=== PATIENT | female | born 1965 | race Caucasian/White ===

== ENCOUNTER 2018-08-07 06:07 | Inpatient (IN) | payer OTHER, SELFPAY ==
[2018-07-21 09:03] VITALS: BMI 39.9
[2018-08-07] VITALS (14 sets, daily range): BP systolic 104–130; BP diastolic 60–79; PULSE 45–68; RESP 10–20; TEMP 35.6–36.9; O2SAT 95–100; BMI 40.7
--- NOTE | 2018-08-07 | DI.RAD.S_ITS ---
PROCEDURE: XR HIP W PEL IF DONE LT 2V INDICATIONS: POST OPERATIVE TOTAL LEFT HIP TECHNIQUE: 2 views of the hip were acquired. COMPARISON: [facility], CR, XR HIP W PEL IF DONE LT 2V, 08/07/2018, 9:25. FINDINGS: Bones: Surgical changes are identified related to a left hip arthroplasty. The prosthetic components appear to be intact and appropriately seated. No periprosthetic fractures are evident. Post surgical changes are also present involving the right hip related to a right total hip arthroplasty. Soft tissues: No suspicious soft tissue calcifications or masses. Expected postoperative changes within the overlying soft tissues are present. Surgical drainage catheter is evident. Surgical skin aravind are noted. No unexpected radiopaque foreign bodies are appreciated. IMPRESSION: Expected post surgical changes related to a left hip arthroplasty. Dictated by: Kevin Prieto M.D. on 08/07/2018 at 11:38 Approved by: Kevin Prieto M.D. on 08/07/2018 at 11:39
--- NOTE | 2018-08-07 06:00 | DI.RAD.S_ITS ---
PROCEDURE: XR HIP W PEL IF DONE LT 2V INDICATIONS: prosthesis placement TECHNIQUE: AP pelvis and lateral view of the left hip acquired. COMPARISON: [facility], [place], XR PELVIS WITH BILATERAL LATERAL HIPS, 07/23/2018, 14:15. FINDINGS: Bones: Patient is status post left hip arthroplasty, with hardware components in expected positions. The visualized bony structures appear intact. Soft tissues: Overlying postoperative changes are noted. No suspicious soft tissue densities. IMPRESSION: Expected procedural change for left hip arthroplasty. Dictated by: Clarissa Madison MD, PhD on 08/07/2018 at 9:49 Approved by: Clarissa Madison MD, PhD on 08/07/2018 at 9:52
[2018-08-07] MEDS: LACTATED RINGERS 1,000 ML 42 ML IV ×2 (07:00→09:49)
[2018-08-07] MEDS: VANCOMYCIN 1,000 MG/200 ML FROZ.PIGGY 200 MG IV (07:01)
[2018-08-07] MEDS: ACETAMINOPHEN 325 MG TABLET 975 MG PO ×3 (07:19→21:04)
[2018-08-07] MEDS: PREGABALIN 75 MG CAPSULE PO (07:19)
--- NOTE | 2018-08-07 07:56 | PM.PREOP ---
Pre-operative Note Interval Note Pre-op Check: Yes History & Physical Reviewed by Physician and Yes Exam Performed Changes: No
--- NOTE | 2018-08-07 07:56 | PM.OP.1 ---
Operative Date/Time/Diagnoses Date of procedure: 08/07/18 Time of procedure: 07:56 Pre-op diagnosis: left hip severe AVN with collapse, hip OA Post-op diagnosis: same Procedure & Clinicians Procedure: Left total hip arthroplasty Same procedure as scheduled: Yes Indications: The patient has had progressively worsening left hip pain with radiographic changes consistent with arthritis. Non-operative management has failed and the patient has requested total hip replacement. The risks, benefits and alternatives to surgery were discussed with the patient prior to proceeding. Risks discussed included, but were not limited to, failure to relieve pain, leg length discrepancy, dislocation, stiffness, infection, nerve damage, deep venous thrombosis, pulmonary embolism, stroke, coma, heart attack, permanent paralysis and , as well as the potential need for eventual revision of the prosthetic. Surgeon: Yady Boss Farm [employer] Adviser: Mariam Cabrera Anesthesia Type: General and Spinal Operative Notes Findings: severe left hip avascular necrosis, adequate stability and bone quality Closure Type: primary Specimen(s): none sent Implants & Drains: Boss [employer] Nephew R3 52 cup neutral liner, +4 femoral head by 36 size 9 standard offset anthology single 20 mm screw Applied: drain(s) Estimated Blood Loss (mL): 250 Blood products transfused: none Procedure in detail: The patient was seen in the pre-operative area, where the patient identified the left hip as the operative site and this was marked with my initials. The patient received pre-operative antibiotics and was taken to the operating room and placed on the operative table in the right lateral decubitus position after satisfactory anesthesia. A log truck driver out was performed. The left leg was prepared from the ankle to the iliac crest with ChloroPrep in the usual fashion and draped through sterile drapes. The hip was approached through an approximately 24 cm incision centered over the greater trochanter and curving gently posteriorly as it went proximally. This was carried sharply to the fascia adriel, which was divided and retracted with a self retaining retractor. The trochanteric bursa was excised with care being taken to avoid the sciatic nerve, which was identified and protected throughout the case. The short external rotators were incised and the capsulomuscular flap was raised and tagged for later repair. The hip was dislocated, and a femoral neck osteotomy performed approximately 15 mm above the lesser trochanter. Retractors were placed around the femur. The canal was opened with a box cutting osteotome, followed by a T handled reamer and a lateralizing reamer. The chili pepper broach was then used, followed by sequential broaching until there was good stability of the broach in the femur. Retractors were placed to expose the acetabulum. The labrum and central soft tissues were removed. Reaming was performed initially going up in 2 mm increments, then 1 mm increments until good bite was obtained with an odd sized reamer. The cup 1 mm larger than the last reamer was then inserted using the appropriate anteversion guides. her acetabulum was somewhat shallow and I felt that I should supplement our fixation with a screw. A drill bit was used and it was measured and a screw was placed in the posterolateral quadrant that was 20 mm. A trial neutral liner was placed. The broach was placed in the canal. A trial head and neck were then placed and the hip relocated and checked for leg length and stability. An intraoperative film confirmed the component position and no evidence of fracture. The digital x-rays were not available and 2 films were taken which were of suboptimal quality but did provide some intraoperative information. The patient was stable in the position of sleep, of squatting, and could be put through a range of motion with 45 degrees internal rotation without dislocation. At 90 degrees flexion, internal rotation to 60 was possible before dislocation. This was felt to be satisfactory and the appropriate components were opened, and the trials were removed. The acetabular liner was impacted into position. The final stem was then impacted into the prepared femoral canal. A brief Betadine soak was performed while trialing with head options. The hip was meticulously irrigated with normal saline. Finally the femoral head was impacted onto the stem. The acetabulum was cleared of all material and the hip relocated one final time. The capsulomuscular flap was then repaired to the greater trochanter though an awl hole using the tag sutures. The short external rotators were repaired with a nonabsorbable suture. A deep drain was placed and brought out anteriorly. The fascia adriel was closed with nonabsorbable suture. The subcutaneous layer was closed with barbed sutures and SteriStrips. An Aquacel Ag dressing was applied and the patient was taken to recovery having tolerated the procedure well. Complications: none Condition: stable Disposition: Acute Care Plan for aftercare: The patient will be maintained on a standard total hip replacement protocol with weight bearing as tolerated and posterior hip precautions. The patient will receive Coumadin and sequential compression devices for DVT prophylaxis. The patient will be discharged home when safe for the home environment.
[2018-08-07] MEDS: CEFAZOLIN 2 GM/100 ML FROZ.PIGGY IV (08:00)
--- NOTE | 2018-08-07 08:29 | SUR.OPER ---
Lateral on padded OR bed. Gel axillary roll. Arms secured on padded armboard with pillow supporting top arm. Padded hip positioner braces x4 - anterior and posterior chest and pelvis. Additional gel pad used anterior pelvis. Gel pad under bottom leg from knee to foot and secured with tape over sheet.
[2018-08-07] MEDS: BUPIVACAINE LIPOSOME 266 MG/20 ML VIAL INJ (08:40)
[2018-08-07] MEDS: BUPIVACAINE 0.5% W/ EPI (PF) VIAL 60 ML INJ (08:40)
[2018-08-07] MEDS: POVIDONE-IODINE 15 ML, SODIUM CHLORIDE 0.9% 250 ML TOP (08:41)
[2018-08-07] MEDS: SODIUM CHLORIDE IRRIG SOLUTION 250 ML, EPINEPHrine 1 MG IRR (08:41)
[2018-08-07] MEDS: LACTATED RINGERS 1,000 ML 125 ML IV ×2 (12:13→21:04)
--- NOTE | 2018-08-07 12:43 | PC.ADMIT ---
Addendum entered by Soy Whitfield R.N. 08/07/18 13:32: patient had 230cc's from HV within 2 hrs. Gretchen Garcia notified. order to clamp x 2hrs. just now clamped at 1330. Original Note: [address] Admission Note: PATIENT DROWSY, IMMEDIATELY RESPONSIVE TO VOICE. MAKES NEEDS KNOWN. VSS. SAT 96-98% ON RA. SELVIN 45-60 HRR W/ MURMUR. STATES THIS IS HER BASELINE AND HAS BEEN WORKED UP BY ENTRY LEVEL RECEPTIONIST IN THE PAST. RATES PAIN 3-4/10. INCISIONAL BURNING RATHER THAN JOINT PAIN. FAMILY AT BEDSIDE. MALCOM DRSG CDI. HV PATENT, SANG DRAINAGE. The patient,Megan Goldberg,52 y/o, was given written information regarding hospital policies, unit procedures and contact persons. Patient's smoking status: Never smoker. Vital Signs - 8 hr 08/07/18 07:04 08/07/18 10:42 08/07/18 10:46 Temperature 97.5 F L Pulse Rate 68 68 68 Respiratory Rate 15 12 10 L Blood Pressure 127/74 114/68 104/64 Pulse Oximetry 97 95 96 08/07/18 10:51 08/07/18 10:56 08/07/18 11:01 Temperature 96.5 F L Pulse Rate 64 62 62 Respiratory Rate 10 L 10 L 12 Blood Pressure 104/62 108/67 123/70 Pulse Oximetry 97 98 99 08/07/18 11:06 08/07/18 11:25 08/07/18 11:55 Temperature 96.0 F L 96.8 F L Pulse Rate 60 56 L 57 L Respiratory Rate 10 L 12 12 Blood Pressure 127/72 120/65 108/72 Pulse Oximetry 96 100 97 08/07/18 12:25 Temperature 96.4 F L Pulse Rate 55 L Respiratory Rate 16 Blood Pressure 110/60 Pulse Oximetry 100
[2018-08-07] MEDS: TRAMADOL 50 MG TABLET PO ×3 (13:18→21:04)
[2018-08-07 14:25] LABS: INR 1.1 (0.9-1.3); Prothrombin Time 12.6 SECONDS (10.1-12.7)
--- NOTE | 2018-08-07 15:22 | PT.IIE ---
Current Diagnoses Unilateral primary osteoarthritis, left hip (08/07/18) Surgery Performed Operation Date: 08/07/18 07:45 Actual Procedures p Total Hip Arthroplasty(Left) - Yady Boss MD Surgical History (Last Updated 07/21/18 @ 09:42 by Tiffanie Clemens RN) History of total right hip arthroplasty (Acute 10/13/17) Hx of cholecystectomy (Acute ~1988) Medical History (Last Updated 07/21/18 @ 09:43 by Tiffanie Clemens RN) Basal cell carcinoma (BCC) (Acute ~2017) Bradycardia (Acute) Factor V Leiden (Acute) Fibromyalgia (Acute) Hypothermia associated with surgery (Acute) Pneumonia (Acute) Postoperative hypotension (Acute) Rheumatoid arthritis (Acute) Sleep apnea (Acute) Physical Therapy Inpatient Evaluation/Re-Eval M1 PT/OT-IP Prior Functional Status Start: 08/07/18 14:54 Freq: NEEDED Status: Active Protocol: Document 08/07/18 14:00 (Rec: 08/07/18 15:21 [email or web address]) Medical Review Prior Functional Status Medical History Reviewed Yes Communication No deficits noted Mobility and Gait Pt is an independent ambulator at home and community. Pt uses FWW at home and 4 WW for community mobility. Activities of Daily Living and IADL's independent for ADLs with FWW/ 4WW. Mod independent with IADLs. Pt's is able to help if needed such as grocery shopping. Social History Household Members spouse children Living Arrangements House Number of Floors (Floors) One Floor Number of Stairs To Enter/Railing? 1 M[place] with railing on the left side Home Environment High Toilet Walk in Shower Home Equipment Front Wheel Walker Four Wheel Walker Raised Toilet Seat Without Armrests Employment Status [employer] Employed Additional Social History Comment Pt lives at a 1 story home 1 [address] with her . Pt does require assistance for ADLs and most ADLs. Pt's helped her both ADLs and IADLs early this year after she received her R THR. M2 PT-IP Current Condition Start: 08/07/18 14:54 Freq: NEEDED Status: Active Protocol: Document 08/07/18 14:00 HH (Rec: 08/07/18 15:21 [email or web address]) Physical Therapy Current Condition Current Condition Evaluation Date 08/07/18 Treatment Diagnosis L THR, difficulty in walking, generalized muscle weakness Onset Date 08/07/18 Precautions Posterior Hip Precautions No Hip Flexion > 90 degrees No Hip Internal Rotation No Hip Adduction Weight Bearing Status Weight Bearing Status Weight Bear as Tolerated M3 PT-IP Subjective Start: 08/07/18 14:54 Freq: NEEDED Status: Active Protocol: Document 08/07/18 14:00 (Rec: 08/07/18 15:21 [email or web address]) Subjective Physical Therapy Visit Type Type Initial Evaluation Visit Start Time 14:00 Visit Stop Time 14:45 Total Visit Minutes 45 Notes Pt agreeable to mobilize with PT. Pt reports L hip pain 4/10 and requests to reposition her in bed due to discomfort at her R buttock. Number of SALES AGENT CASUALTY INSURANCE Visits 0 Physical Therapy Visit Comments Patient Comments Pt states I want to reposition myself and get OOB. I dont have much pain now and my sensation are the same for both legs. Patient Goals To be able to go home To be able to amb without AD Therapy Pain Assessment Pain When Pain Assessed At Rest Pain Present Pain Present Pain Reported Location Left Hip Intensity 4 Scale Used Numeric (1 - 10) Description Acute Pain Management Techniques Apply Cold Re-positioning Timing of Activity with Medications M4 PT-IP Mobility and Gait Start: 08/07/18 14:54 Freq: NEEDED Status: Active Protocol: Document 08/07/18 14:00 (Rec: 08/07/18 15:21 [email or web address]) PT-Bed Mobility Assessment Supine to Sit Supine to Sit Minimal Assistance 1 Person Assistance Head of Bed Elevated Sit to Supine Sit to Supine Minimal Assistance 1 Person Assistance Head of Bed Elevated Scooting Scooting to Edge of Bed Minimal Assistance PT-Transfer Assessment Sit to and From Stand Sit to and from Stand Contact Guard Assistance Use of Upper Extremities Equipment Transfer Assistive Device Gait Belt Front Wheeled Walker Transfers Transfer Destination Bed Chair Bedside Commode Transfer Technique Stand Step Pivot Transfer Ability Level of Assist Contact Guard Assistance 1 Person Assistance Comments Mobility Comments sitting BP 130/69 HR 55 98% post transfer BP 130/86 HR 72 96% Pt performs lateral scooting in supine with min A to unweight her L LE. She then performs supine to sit with bed in semi-sitting position with CGA. Pt is able to scoot forward to EOB with min A on L LE followed by sit to stand with FWW CGA. Pt transfer with stand step pivot x 2 to bedside commode and reclining chair with FWW CGA. Pt denies increase in pain and is aware of her precautions. Pt does not show acute distress and LOB. She is also able to FWB at her L LE. Gait Assessment Gait Gait Assistance Required: Contact Guard Assist Distance (Feet) 15 Assistive Devices Assistive Device Gait Belt Front Wheeled Walker Gait Deviations General Gait Pattern Antalgic Decreased Stride Length Decreased Feet Clearance Factors Limiting Gait Function Factors Limiting Gait Function Decreased Activity Tolerance Decreased Strength Limited Range of Motion Pain Comments Gait Comments Pt ambs from EOB to bedside commode and to reclining chair for 15 feet in total with FWW CGA. She denies increase in pain and able to FWB on her L LE during amb. Pt does present mild antalgic gait during stance phase of L LE but she states I feel like im walking better without much pain. Pt does c/o slight fatigue after back to chair possibly due to anesthesia from sx. Pt does not show any signs of LOB during amb and is able to recall posterior hip precautions. Stair Climbing Assessment Comments Stair Climbing Comments did not attempt due to fatigue . PT-Balance Assessment Sitting Balance and Reactions Static Sitting Balance Ability Normal Dynamic Sitting Balance Ability Normal Standing Balance and Reactions Static Standing Balance Ability Normal Dynamic Standing Balance Ability Good M5 PT-IP Objective Assessments Start: 08/07/18 14:54 Freq: NEEDED Status: Active Protocol: Document 08/07/18 14:00 (Rec: 08/07/18 15:21 [email or web address]) Orientation Orientation/Cognition Level of Alertness Alert Orientation Name Age Birthday Month Date Year Day of Week Place Situation Safety Awareness Understands Safety Issues Memory Description No Deficits Noted Gross Range of Motion Upper Extremity ROM Assessment Within Functional Limits Lower Extremity ROM Assessment Within Functional Limits Strength Upper Extremity Strength Assessment Within Functional Limits Lower Extremity Strength Assessment Right Impaired Coordination Assessment Gross Coordination Gross Coordination WNL Sensation Assessment Sensation Gross Sensation WNL M6 PT-IP Treatment Start: 08/07/18 14:54 Freq: NEEDED Status: Active Protocol: Document 08/07/18 14:00 (Rec: 08/07/18 15:21 [email or web address]) Physical Therapy Treatment Exercises Exercises Ankle Pumps Gluteal Sets Quad Sets Heel Slides Education Education Provided Precautions Weight Bearing Status Post-Op Packet Safety Other Treatments Other Treatment Performed supine leg press against PT M7 PT-IP Assessment and Plan Start: 08/07/18 14:54 Freq: NEEDED Status: Active Protocol: Document 08/07/18 14:00 (Rec: 08/07/18 15:21 [email or web address]) PT Summary Assessment and Plan Potential Rehabilitation Potential Excellent Status of Condition at Evaluation Stable Summary Impairments Pain ROM Strength Gait Activity Tolerance Assessment Summary Pt was seen in her room today with her supportive family. Pt had R posterior THR early this year who is able to recall all her precautions. Pt is very motivated and pleasant who is willing to amb upon assessment. Pt denies increase in pain during OOB and gait training today. Pt currently requires CGA for OOB and amb, min A for bed mobility to unweight her L LE. Pt also presents good safety awareness and no signs of LOB/ acute distress. Cont PT to increase her overall functional mobility as tolerated prior to d/c. Recommend d/c to home with home health PT / outpatient PT . Goals Bed Mobility Goal Standby Assistance Gait Goal Standby Assistance Gait Distance 100 Other Goals negotiate 1 step with CGA Days to Meet Goals 2 Frequency of Treatment Frequency Of Treatment Twice a Day Treatment Plan Physical Therapy Treatment Plan Bed Mobility Training Transfer Training Gait Training Therapeutic Exercise Balance Retraining Post Op Education Hot or Cold Pack Neuromuscular Re-ed Other Recommendations and Next Treatment gait training as hortencia, bed mob Focus supine to sit, scooting EOB, step training as hortencia Recommendations To Nursing Amount of Assist Needed 2 Person Assist Discharge Recommendations PT Discharge Recommendations Home Home Health Outpatient PT
[2018-08-07] MEDS: CEFAZOLIN VIAL 3 GM in SODIUM CHLORIDE 0.9% 100 ML 200 ML IV (16:04)
[2018-08-07] MEDS: IBUPROFEN 600 MG TABLET PO (16:57)
[2018-08-07] MEDS: ASPIRIN EC 81 MG TABLET PO (21:04)
[2018-08-07] MEDS: DOCUSATE 100 MG CAPSULE PO (21:04)
[2018-08-08] MEDS: CEFAZOLIN VIAL 3 GM in SODIUM CHLORIDE 0.9% 100 ML 200 ML IV (00:01)
[2018-08-08 01:16] VITALS: BP 109/51; PULSE 55; RESP 17; TEMP 36.5; O2SAT 98
[2018-08-08] MEDS: IBUPROFEN 600 MG TABLET PO (02:20)
[2018-08-08] MEDS: TRAMADOL 50 MG TABLET PO (02:20)
--- NOTE | 2018-08-08 02:57 | PC.NURSE ---
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 Medicated with prn pain meds for 3-4/10 pain to left hip. H/V site leaking, dressing removed and reinforced, H/V collection does not hold suction well but continues to drain sero sang drainage. Kristin dressing has two small of red drainage. Bed alarm on.
[2018-08-08 06:24] VITALS: BP 100/58; PULSE 49; RESP 16; TEMP 36.4; O2SAT 98
[2018-08-08 06:34] LABS: Hemoglobin 10.1 g/dL (12.0-16.0)
--- NOTE | 2018-08-08 08:44 | P.DS_ITS ---
History of Present Illness Date Patient Seen: 08/08/18 Time Patient Seen: 08:41 Chief complaint: [id number] LEFT TOTAL HIP ARTHROPLASTY Narrative: Patient postop day 1 status post left total hip arthroplasty. Patient's pain is mild. She has been walking in room. She is able to urinate on her own. She has pain meds at home. She is back on her Coumadin. She will continue aspirin for couple days and then be seen for PT INR. No fever chills. Otherwise without complaints. Discharge Providers Date of admission: 08/07/18 06:07 Primary care physician: LLOYD Schwarz Consults: 07/21/18 09:33 Consult to Respiratory Therapy Evaluate & Treat Comment: Does not use CPAP, will bring dos Physician Instructions: Evaluate and treat 08/07/18 06:00 Consult to Anesthesiology Routine Comment: Consulting Provider: Anesthesiologist Reason for consultation: Regional block for post operative pain control 08/07/18 07:18 Consult to Respiratory Therapy Evaluate & Treat Comment: Physician Instructions: Evaluate and treat 08/07/18 11:29 Consult to Discharge Planning Routine Comment: Consult to Physical Therapy Evaluate & Treat Comment: Physician Instructions: post op SAMANTHA protocol Consult to Respiratory Therapy Evaluate & Treat Comment: Physician Instructions: Evaluate and treat, oob today Discharge provider: Bola Kraft PA-C Discharge Date: 08/08/18 Summary Discharge Diagnosis: Status post left total hip arthroplasty Hospital Course: Patient failed conservative treatment per op note. Patient admitted to the hospital for left total knee arthroplasty. Patient consented to the same. Patient taken to the operating room underwent left total hip arthroplasty. Patient back in her room recovering well and is in stable condition. Patient has been up ambulating in her room. She denies fever chills. No nausea vomiting. She is status post right total hip arthroplasty. She does have pain medicine at home and has not restarted her Coumadin. Patient is aware that she needs to be seen and [facility] for PT INR check. Otherwise without complaints. She does feel ready to go home this morning. She has her and kids at home to assist her. Status at Discharge Functional status at discharge: uses cane/walker Overall status at discharge: patient is progressing back to baseline Time Spent with Patient Less than 30 minutes Exam Vital Signs (past 8 hours): - 08/08/18 01:16 08/08/18 06:24 Temperature 97.7 F 97.6 F Pulse Rate 55 L 49 L Respiratory Rate 17 16 Blood Pressure 109/51 L 100/58 L Pulse Oximetry 98 98 Oxygen Delivery Method Room Air Narrative Exam Narrative: 52-year-old female resting comfortably in bed in no apparent distress. Hemovac in place. Kristin dressing on and functioning. Dressing is clean , dry and intact. Sensation grossly intact to light touch distal left lower extremity. Motor functions intact distal left lower extremity. Objective Labs Result Diagrams: 08/08/18 06:24 Labs: Laboratory Results - last 24 hr 08/07/18 08/08/18 14:02 06:24 Hgb 10.1 L Hct 30.0 L PT 12.6 INR 1.1 Discharge Plan Discharge Plan Patient Disposition: Home Discharge comment: DC home today after PT Discharge Med Rec/Prescriptions Prescriptions: New acetaminophen 325 mg Tablet 975 mg PO TID Qty: 90 RF: 0 Continue warfarin 6 mg Tablet 6 mg PO DAILY RF: 0 methotrexate sodium 2.5 mg Tablet 25 mg PO QWEEK RF: 0 warfarin 2.5 mg Tablet 2.5 mg PO SEEINSTR RF: 0 Follow up/Referrals: Jessie Thakkar ARNP [Primary Care Provider] - 1 Week Yady Boss MD [Physician] - Provider Discharge Instructions Diet: Diet as Tolerated Activity: Weightbearing as tolerated, posterior hip precautions Cold/Heat Therapy: Apply ice to the affected area as needed Skin/Wound/Dressing Care Report to your healthcare provider any signs of infection, such as:: chills, fever, increased pain, unusual drainage and unusual redness Dressing: Kristin dressing instructions reviewed with patient Discharge Data Primary Care Provider: Jessie Thakkar Attending Provider: Yady Boss Admit Date/Time: 08/07/18 06:07 Quality VTE Deep Vein Thrombosis/Pulmonary Embolism Present on Admission: No
[2018-08-08 09:00] VITALS: BP 109/55; PULSE 56; RESP 16; TEMP 36.4; O2SAT 98
[2018-08-08] MEDS: ACETAMINOPHEN 325 MG TABLET 975 MG PO (09:13)
[2018-08-08] MEDS: ASPIRIN EC 81 MG TABLET PO (09:13)
[2018-08-08] MEDS: DOCUSATE 100 MG CAPSULE PO (09:13)
--- NOTE | 2018-08-08 09:30 | PT.IPTN ---
Current Diagnoses Unilateral primary osteoarthritis, left hip (08/07/18) Surgery Performed Operation Date: 08/07/18 07:45 Actual Procedures p Total Hip Arthroplasty(Left) - Yady Boss MD Physical Therapy Treatment Note M2 PT-IP Current Condition Start: 08/07/18 14:54 Freq: NEEDED Status: Discharge Protocol: Document 08/07/18 14:00 HH (Rec: 08/07/18 15:21 HH [id number]) Physical Therapy Current Condition Current Condition Evaluation Date 08/07/18 Treatment Diagnosis L THR, difficulty in walking, generalized muscle weakness Onset Date 08/07/18 Precautions Posterior Hip Precautions No Hip Flexion > 90 degrees No Hip Internal Rotation No Hip Adduction Weight Bearing Status Weight Bearing Status Weight Bear as Tolerated M3 PT-IP Subjective Start: 08/07/18 14:54 Freq: NEEDED Status: Discharge Protocol: Document 08/08/18 09:30 GGD (Rec: 08/08/18 12:51 GGD [email or web address]) Subjective Physical Therapy Visit Type Type Treatment Note Visit Start Time 09:05 Visit Stop Time 09:30 Total Visit Minutes 25 Number of ULTRASONIC SOLDERER Visits 1 Physical Therapy Visit Comments Patient Comments Pt states she feels ready to go home. Therapy Pain Assessment Pain When Pain Assessed During Mobility Pain Present Pain Present Pain Reported M4 PT-IP Mobility and Gait Start: 08/07/18 14:54 Freq: NEEDED Status: Discharge Protocol: Document 08/08/18 09:30 GGD (Rec: 08/08/18 12:51 GGD [email or web address]) PT-Transfer Assessment Sit to and From Stand Sit to and from Stand Standby Assistance Use of Upper Extremities Equipment Transfer Assistive Device Gait Belt Front Wheeled Walker Orthotic/Prosthetic Devices or Brace: Yes Transfers Transfer Destination Chair Transfer Ability Level of Assist Contact Guard Assistance 1 Person Assistance Gait Assessment Gait Gait Assistance Required: Contact Guard Assist Distance (Feet) 220 Able to Maintain Weight Bearing Status Yes During Gait Assistive Devices Assistive Device Gait Belt Front Wheeled Walker Gait Deviations General Gait Pattern Antalgic Decreased Stride Length Decreased Feet Clearance Factors Limiting Gait Function Factors Limiting Gait Function Decreased Activity Tolerance Decreased Strength Limited Range of Motion Pain Stair Climbing Assessment Evaluation Level of Assist On Stairs Contact Guard Assistance Devices Stair Climbing Assistive Devices Front Wheel Walker Technique/Endurance Stair Climbing Direction Ascend and Descend Stair Climbing Technique Step to Step Number of Steps Climbed 1 Query Text: Stair Climbing Set # Repetitions (reps) 1 M5 PT-IP Objective Assessments Start: 08/07/18 14:54 Freq: NEEDED Status: Discharge Protocol: Document 08/07/18 14:00 HH (Rec: 08/07/18 15:21 HH [email or web address]) Orientation Orientation/Cognition Level of Alertness Alert Orientation Name Age Birthday Month Date Year Day of Week Place Situation Safety Awareness Understands Safety Issues Memory Description No Deficits Noted Gross Range of Motion Upper Extremity ROM Assessment Within Functional Limits Lower Extremity ROM Assessment Within Functional Limits Strength Upper Extremity Strength Assessment Within Functional Limits Lower Extremity Strength Assessment Right Impaired Coordination Assessment Gross Coordination Gross Coordination WNL Sensation Assessment Sensation Gross Sensation WNL M6 PT-IP Treatment Start: 08/07/18 14:54 Freq: NEEDED Status: Discharge Protocol: Document 08/08/18 09:30 GGD (Rec: 08/08/18 12:51 GGD [email or web address]) Physical Therapy Treatment Exercises Exercises Ankle Pumps Gluteal Sets Quad Sets Seated Knee Flexion/Extension Education Education Provided Precautions M7 PT-IP Assessment and Plan Start: 08/07/18 14:54 Freq: NEEDED Status: Discharge Protocol: Document 08/08/18 09:30 GGD (Rec: 08/08/18 12:51 GGD [email or web address]) PT Summary Assessment and Plan Summary Assessment Summary Pt improving with mobility. She was safe and stable with gait and stair mobility. She able to recall her hip precautions. She has good safety awareness. Pt safe to D /C home when medically stable. Frequency of Treatment Frequency Of Treatment Twice a Day Treatment Plan Other Recommendations and Next Treatment gait training as hortencia, bed mob Focus supine to sit, scooting EOB, step training as hortencia Recommendations To Nursing Amount of Assist Needed 1 Person Assist Discharge Recommendations PT Discharge Recommendations Home with Assistance Outpatient PT
--- NOTE | 2018-08-08 11:55 | CM.DANOTE ---
Patient is a 52 year old female who was admitted on 08/07/18 for Left Total Hip Arthro. Pt has [employer] for insurance and her PCP is Dr. Thakkar. EMR was reviewed. Per Ortho MD, pt tolerated procedure well and likely stable for d/c home today after further PT. Per PT, pt ambulating well and not currently needing pain medication and recommending safe d/c home with outpt PT. SW met bedside with pt while working with PT and SW explained role and pt confirms that she lives at home with her and children and is independent at baseline with ADL's and has both FWW and 4WW at home for use and has a hx of Rip Total Hip earlier this year and discharged home but ended up needing Home Infusion for Abx for infection through [facility] in November 2017. Pt's DPOA is her Aries. Pt does not anticipate any SW needs and plan is to d/c home with family later today and no identified barriers to discharge. Plan: SW to follow for likely pt d/c home via family POV later today after further PT. ANDERS Jessica Discharge Planning/Care Management CM Discharge Assessment Start: 08/08/18 11:50 Freq: Status: Active Protocol: Document 08/08/18 11:50 BF (Rec: 08/08/18 11:55 BF [id number]) Discharge Planning Assessment Assigned Marine Biologist ANDERS Lopes DPOA/Assigned Designee Name spouse Aries Contact Information [phone] Advance Directives? Yes: DPOA for Health Care/ Health Care Directive Advance Directives on File No History Provided By Patient Medical Record Has Patient been admitted in last 30 No days? Prior Living Arrangements House Household Members spouse children Type of transporation used prior to Drives own vehicle admit Comment Typically independent with ADL 's at baseline Independent with ADL's Yes Is patient alert and oriented? Yes Caregiver for Another Yes: older children in the home DME Already Rented / Owned FWW / Walker Comment Likely home with outpt PT Barriers to Discharge No Discharge Plan Home Community Services Physical Therapy Transportation Arrangement Spouse can likely provide transport Referrals Initiated None needed Whiteboard Updated in Patient Room with Yes name and ext. # of Marine Biologist Review Status In Process Please Provide Date Initial DC 08/08/18 Assessment Was Performed Next Review Type Continued Stay Review Pre-Anesthesia Assessment Start: 07/21/18 09:03 Freq: Status: Complete Protocol: Document 07/21/18 09:03 [facility] (Rec: 07/21/18 09:26 [facility] [id number]) Pre-Anesthesia Assessment Patient Information Reviewed Via Phone Assessment Assessment Completed With Patient Lab Results BMP/CMP CBC EKG Urinalysis Other Comment A1c Primary Care Provider Jessie Thakkar Seen Specialist in Last 12 Months Yes Specialist Seen Asbestos Abatement Worker Orthopedist Other Comment Rheumatology, Hematology Primary Language Bulgarian Home Stereo Equipment Installer Required No Height 170.18 cm Weight 115.666 kg Body Mass Index (BMI) 39.9 Hearing Ability Normal Visual Assist Glasses Dentition Type Teeth, Natural Present Barriers to Learning None Hx Anesthesia Reactions No Hx Family Anesthesia Reaction No Hx Malignant Hyperthermia No Hx Blood Transfusions No Anesthesia Review Requested No Fws Faculty Assistant No Alcohol Intake Frequency Other: None Smoking Status Never smoker Substance Use Type does not use Pain Present Pain Reported Musculoskeletal Symptoms Abnormal Gait Difficulty Walking Joint Pain History of Falling (Recent or History of No ) Patient is completely paralyzed or No completely immobile Prosthesis or Orthotic Device Front Wheel Walker Mental Status Oriented to own ability Is patient on oxygen? No Does patient have WALLACE/SOB No Hx Sleep Apnea Yes CPAP/BIPAP use prescribed not used Will Bring CPAP/BIPAP DOS Yes Currently Taking a Beta Paulo No Can You Climb a Flight of Stairs Without Yes SOB Hx Chest Pain No Hx SOB No Hx Syncope or Dizziness No Anti-Coagulant Therapy Yes: Warfarin r/t Factor V - will check w/surgeon on when to hold Has a Can Operator Yes: Pre-op EKG sinus bradycardia 48bpm Cardiac Testing No Hx Pacemaker/ICD No Pacemaker Rep Required? No Cardiac Clearance Received Not Applicable Diet Type At Home Ketogenic Other dysphagia No Bladder Pattern Nocturia Urinary Catheter Present No Hx Urinary Self Catheterization No Diabetes No HgbA1C 5.3 Date 07/07/18 Patient No Lactating No Hx Drug Resistant Organism No Presence of External or Internal Medical No Devices Have you traveled outside the [place] in the last 30 days? Marital Status Lives With spouse children Prior Living Arrangements House Number of Floors (Floors) One Floor Number of Stairs To Enter/Railing? 1 step, railing present Support System Child/Children Friend(s) Spouse Patient Discharge Plan Description Return Home Comment Pt advised 2 day length of stay per surgeon's office Feels Safe in Current Environment Yes Been Physically Hurt or Threatened By a No Person in Current Environment Do you have thoughts of harming yourself None or others? Are you currently considering suicide? No Do you have a plan to hurt yourself or No Plan others? Do You Have Any Spiritual Beliefs That No May Affect Your HC Choices? Do You Have Any Cultural Practices That No May Affect Your HC Choices? Spiritual Referral None Comment Jer Who Can We Speak to About Patient's Care Family, friends Identifying Code for Release of Patient Declines to issue Information Health Care Proxy/Next of Kin Aries () Health Care Proxy Emergency Contact Name Aries () Emergency Contact Advance Directives? No: Will discuss w/surgeon, declines form Advance Directives on File No Requested Patient Bring Advanced Yes Directives DOS Power of Promotions Assistant Yes Power of Promotions Assistant Name Aries () Power of Promotions Assistant PAC Instructions Bring CPAP/BIPAP Do not shave/clip surgical site Medications to take/avoid Nasal antibiotic No ETOH/petroleum product on skin DOS NPO Post-op transportation Pre-surgical wash Sensory aids Sturdy shoes/comfortable clothes Do not bring valuables and remove jewelry
== END 2018-08-08 12:15 | disposition home or self-care (01) | DRG 470 ==
PROVIDERS: Admitting Provider Orthopaedic Surgery; Family Provider Nurse Practitioner Family; PCP Nurse Practitioner Family; Visit Provider Orthopaedic Surgery
PROC: 0SRB0JZ Replacement of Left Hip Joint with Synthetic Substitute, Open Approach (ICD-10-PCS; CPT 27130; principal; 2018-08-07 07:45)
DX: M16.12 Unilateral primary osteoarthritis, left hip (principal); D68.51 Activated protein C resistance; Z68.41 Body mass index [BMI] 40.0-44.9, adult; M87.852 Other osteonecrosis, left femur; M06.9 Rheumatoid arthritis, unspecified; M79.7 Fibromyalgia; Z96.641 Presence of right artificial hip joint; F32.9 Major depressive disorder, single episode, unspecified; F41.9 Anxiety disorder, unspecified; E66.9 Obesity, unspecified
CPT/HCPCS: 36415; 73502; 85014; 85018; 85610; 97116; 97161; 97530; C1776; C9290; J0171; J0690; J1170; J2250; J2704; J3370

== ENCOUNTER 2023-06-27 08:32 | Day surgery (SDC) | payer OTHER, SELFPAY ==
[2018-08-07 11:14] VITALS: BMI 40.7
[2023-06-23 14:44] VITALS: BMI 51.7
[2023-06-27] MEDS: LACTATED RINGERS 1,000 ML 42 ML IV (08:46)
[2023-06-27 08:57] VITALS: BP 146/82; PULSE 62; RESP 18; TEMP 36.3; O2SAT 98; BMI 51.7
--- NOTE | 2023-06-27 10:24 | PM.PREOP ---
Pre-operative Note Interval Note History & Physical reviewed/Exam performed by Physician: Yes Changes to H&P: No
--- NOTE | 2023-06-27 10:25 | P.OP_ITS ---
Operative Date/Time/Diagnoses Date of procedure: 06/27/23 Time of procedure: 10:25 Pre-op diagnosis: Left hallux valgus with bunion, arthritis Post-op diagnosis: same Procedure & Clinicians Procedure: Left first metatarsophalangeal arthrodesis Same procedure as scheduled: Yes Indications: [age] year old female with chronic bunion and pain to the great toe. Conservative measures have failed to alleviate her pain and she wished to have surgical intervention at this time. We spoke the risks and potential complications as well as expected outcomes. Consent was signed and there were no contraindications to the procedure at this time. Surgeon: Gabby Murguia Click Yes if Unassisted: Yes Anesthesia Type: General Operative Notes Closure Type: primary Specimen(s): none sent Prosthetic devices, grafts, tissues, transplants, or devices: [place] great toe fusion plate, 4.0 cannulated screw (1), 2.7 locking and non- locking screws (4). Estimated Blood Loss (mL): 30 Blood products transfused: none Tourniquet time (min): 73 Procedure in detail: The patient was brought to the operating room and placed on the operating table in the supine position. A tourniquet was placed about the patient's left ankle. After induction of general anesthesia the foot and ankle were prepped and draped in the usual aseptic manner. The tourniquet was inflated. Local anesthesia was obtained to the 1st ray using the recorded injectables. Incision was made over the dorsal aspect of the left 1st metatarsophalangeal joint. The incision was deepened through subcutaneous tissues being careful to identify and retract all vital neurovascular structures. All bleeders were cauterized and ligated necessary. The capsule was opened showing an enlarged medial eminence of the 1st metatarsal head. A saw was used to resect the medial eminence enlargement as well as some of the more prominent areas at the 1st metatarsal head dorsallly. The joint showed about 2/3 loss of the articular cartilage on the 1st metatarsal head and less than that on the phalangeal base. A guidewire was placed in the 1st metatarsal head and a reamer was used to resect the cartilage from the 1st metatarsal head and prepare the joint. The same procedure was performed to the proximal phalanx base. These guidewires were then removed. Subchondral drilling was performed to either side with the guidewire as well as some fish scaling using a small osteotome. The area was irrigated with copious amount of normal sterile saline. Temporary fixation across the joint was placed with a guidewire and this was checked under C-arm to be in appropriate alignment. A plate was chosen and any further reduction of prominences dorsally was performed with a rasp and saw. Using the aid of fluoroscopy, the guide wire was used as cannulation for the drill for a lag screw from the distal medial to proximal lateral 1st metatarsal phalangeal joint. Confirmed appropriate in all 3 planes, a partially threaded screw was placed and the guidewire removed. Good strength and reduction of the former joint. Plate was placed and with the aid of fluoroscopy a series of locking screws and a nonlocking screw were placed across the plate and steadied the joint well. All this was checked on C-arm in multiple planes. The area is irrigated with copious amounts normal sterile saline. The tourniquet was deflated and prompt hyperemic response was seen to the foot. No motion was noted at the 1st metatarsophalangeal joint. Subcutaneous closure was performed using Vicryl and nylon was used to close the skin. A sterile lightly compressive dressing was placed on the foot and she was placed in her postoperative boot. She was transferred to the PACU with vital signs stable and vascular status intact. Complications: none Post-operative Condition: stable Disposition: PACU Plan for aftercare: Following a period of postoperative monitoring, the patient will be discharged to home on written and oral postoperative instructions including keeping the dressing dry and intact, no weight to the surgical foot except periodic flat pressure for steadying herself with balance, icing and elevating the foot when seated home. DVT prevention techniques have been reviewed. She will restart her Xarelto tomorrow. Close to the fourth postoperative week we will likely get weight bearing x-rays.
[2023-06-27] MEDS: CEFAZOLIN VIAL 3 GM in SODIUM CHLORIDE 0.9% 100 ML IV (10:30)
--- NOTE | 2023-06-27 11:01 | SUR.OPER ---
Supine on padded OR bed, head on pillow, arms secured on padded arm boards at <90 degrees abduction, legs uncrossed, safety belt at thigh, tape over blanket over non-operative leg, bump under thigh of operative leg.
[2023-06-27] MEDS: BUPIVACAINE 0.5% (PF) 30 ML VIAL INJ (11:06)
[2023-06-27 12:45] VITALS: BP 141/75; PULSE 73; RESP 15; TEMP 36.3; O2SAT 99
[2023-06-27 12:50] VITALS: BP 129/60; PULSE 71; RESP 12; O2SAT 100
[2023-06-27 12:55] VITALS: BP 124/66; PULSE 71; RESP 12; O2SAT 99
[2023-06-27 13:10] VITALS: BP 127/73; PULSE 73; RESP 12; O2SAT 100
[2023-06-27 13:25] VITALS: BP 136/60; PULSE 73; RESP 12; TEMP 36.7; O2SAT 99
== END 2023-06-27 13:40 | disposition home or self-care (01) ==
PROVIDERS: Family Provider Nurse Practitioner Family; PCP Nurse Practitioner Family; Referring Provider Podiatrist; Visit Provider Podiatrist
PROC: (CPT 28750; principal; 2023-06-27 09:45)
DX: M20.12 Hallux valgus (acquired), left foot (principal); M20.42 Other hammer toe(s) (acquired), left foot; Z79.01 Long term (current) use of anticoagulants; Z86.718 Personal history of other venous thrombosis and embolism; D68.51 Activated protein C resistance; E66.9 Obesity, unspecified; Z68.43 Body mass index [BMI] 50.0-59.9, adult
CPT/HCPCS: 28750; C1713; J0690; J1100; J2250; J2405; J2704; J3010